=== PATIENT | male | born 2000 | race Hispanic/Latino ===

== ENCOUNTER 2020-12-05 06:38 | Emergency (ER) | payer SELFPAY ==
[2020-12-05] MEDS ORDERED: Cyclobenzaprine 10 MG TAB ONE (07:10)
[2020-12-05] MEDS ORDERED: Ketorolac Tromethamine 30 MG/ML VIAL ONE (07:10)
== END 2020-12-05 08:07 | disposition home or self-care (01) ==
LOC: ERS 06:38
DX: S16.1XXA Strain of muscle, fascia and tendon at neck level, initial encounter (principal)
CPT/HCPCS: 96372; 99283; J1885